=== PATIENT | female | born 1980 | race Caucasian/White ===

== ENCOUNTER 2017-08-21 07:35 | Emergency (ER) | payer MEDICARE ==
[~2017-08-21] VITALS: Ht 170.2 cm; Wt 68.0 kg
[~2017-08-21 07:35] MED LIST: ALPR0.5T96 PO; LORA10TA64 PO
[2017-08-21 07:50] VITALS: BP_SYST 116
--- NOTE | 2017-08-21 08:22 | NUR ---
Pt placed in bed 7, report endorsed to Sabino COOPER
--- NOTE | 2017-08-21 08:25 | NUR ---
PT AMBULATED INTO ED AAO X4 C/O FEVER AND SOB X2 DAYS. PT STATES THAT IT HURTS 8/10 TO TAKE A DEEP BREATH. PT SPEAKING IN FULL SENTENCES, BREATHING EVEN AND UNLABORED. PT C/O V/D X3 SINCE LAST NIGHT. PT HAS BEEN TAKING TYLENOL COLD AND FLU Q4HRS TO "KEEP MY FEVER DOWN." VSS MUKUL. NO OTHER COMPLAINTS/INJURIES PER PT/NOTED.
--- NOTE | 2017-08-21 08:44 | NUR ---
ER Dr. SCHAEFER at bedside examining patient.
[2017-08-21] MEDS ORDERED: ALBUTEROL SULFATE 0.083% 2.5 MG/3 ML VIAL.NEB IH ONE ×2 (09:00→10:30)
[2017-08-21] MEDS ORDERED: IPRATROPIUM BROM 0.5 MG/2.5 ML VIAL.NEB (ATROVENT) IH ONE ×2 (09:00→10:30)
--- NOTE | 2017-08-21 09:10 | NUR ---
RESPIRATORY AT BEDSIDE ADMINISTERING BREATHING TX.
[2017-08-21] MEDS ORDERED: PREDNISONE 20 MG TABLET PO ONE (09:15)
--- NOTE | 2017-08-21 09:32 | NUR ---
MEDICATION ADMINISTERED. PT NORBERTO WELL. NO ADVERSE REACTIONS NOTED.
[2017-08-21] MEDS ORDERED: NACL 0.9% 1,000 ML IV ONE (09:45)
--- NOTE | 2017-08-21 09:51 | NUR ---
RADIOLOGY AT BEDSIDE
[2017-08-21 10:05] LABS: BASOPHILS % (AUTO) 0.2 % (0.0-2.0); EOSINOPHILS # (AUTO) 0.1 K/uL (0.0-0.4); HEMATOCRIT 37.9 % (36-48); HEMOGLOBIN 12.7 g/dL (12.0-16.0); MEAN CORPUSCULAR HEMOGLOBIN 30 pg (27-31); MEAN CORPUSCULAR HGB CONC 34 % (32-36); MEAN CORPUSCULAR VOLUME 90 fL (79.0-98.0); MONOCYTES # (AUTO) 0.2 K/uL (0.0-1.0); MONOCYTES % (AUTO) 3.8 % (1.7-9.3); NEUTROPHILS # (AUTO) 4.8 K/uL (1.8-7.7); PLATELET COUNT (AUTO) 186 K/uL (130-430); RED BLOOD CELL COUNT(AUTO) 4.23 MIL/uL (4.2-6.2); RED CELL DISTRIBUTION WIDTH 12.4 % (9.0-15.0); WHITE BLOOD COUNT (AUTO) 6.1 K/uL (4.8-10.8)
--- NOTE | 2017-08-21 10:05 | NUR ---
PT VOMITED YELLOW EMESIS X1. NS BOLUS ADMINISTERED.
--- NOTE | 2017-08-21 10:15 | NUR ---
PT TAKEN TO RADIOLOGY VIA WHEELCHAIR IN STABLE CONDITION
--- NOTE | 2017-08-21 10:24 | NUR ---
PT RETURNED FROM RADIOLOGY VIA WHEELCHAIR IN STABLE CONDITION.
--- NOTE | 2017-08-21 10:38 | NUR ---
RESPIRATORY AT BEDSIDE ADMINISTERING BREATHING TX
--- NOTE | 2017-08-21 10:52 | NUR ---
ER MD SCHAEFER ORDERED ROCEPHIN ADMINISTRATION; MD SCHAEFER DOES NOT WANT BLOOD CULTURES DONE
[2017-08-21] MEDS ORDERED: cefTRIAXone 2 GM VIAL ONE (11:02)
--- NOTE | 2017-08-21 11:08 | NUR ---
Medication administered. Pt carol well. No adverse reactions noted.
--- NOTE | 2017-08-21 11:33 | NUR ---
Patient given written and verbal discharge instructions and verbalizes understanding. ER MD SCHAEFER discussed with patient the results and treatment provided. Patient in stable condition. ID arm band removed. IV catheter removed intact and dressing applied, no active bleeding. Rx of ZITHROMAX, TYLENOL WITH CODEINE given. Patient educated on pain management and to follow up with PMD. Pain Scale 1. Opportunity for questions provided and answered.
[2017-08-21 11:46] VITALS: BP_SYST 115
== END 2017-08-21 11:46 | disposition home or self-care (01) ==
LOC: SED 07:35
DX: J20.9 Acute bronchitis, unspecified (principal)
CPT/HCPCS: 36415; 71010; 71020; 81025; 85025; 86710; 94640; 96361; 96365; 99285; J0696; J7030; J7512

== ENCOUNTER 2017-08-22 15:13 | Emergency (ER) | payer MEDICARE ==
[~2017-08-22] VITALS: Ht 170.2 cm; Wt 65.8 kg
[2017-08-22 15:34] VITALS: BP_SYST 118
--- NOTE | 2017-08-22 16:02 | NUR ---
Patient to ER bed 5 to gown for evaluation. Side rails up. Report given to Joseph COOPER.
--- NOTE | 2017-08-22 16:03 | NUR ---
ER at bedside examining patient.
--- NOTE | 2017-08-22 16:05 | NUR ---
Patient to ER via triage with c/o fever and cough which are not resolving. Patient was seen in ER yesterday for same complaint and diagnosed with pneumonia, given antibiotics yesterday and RX. Patient reports that symptoms began on 08/16/17, patient able to ambulate to room with slow, steady gait with no increase in pain or sob upon exertion. Patient has been seen and evaluated by Dr Carolina, will continue to observe and assess.
[2017-08-22 16:06] LABS: BASOPHILS % (AUTO) 0.7 % (0.0-2.0); EOSINOPHILS # (AUTO) 0.2 K/uL (0.0-0.4); EOSINOPHILS % (AUTO) 3.9 % (0.0-4.0); HEMATOCRIT 35.8 % (36-48); HEMOGLOBIN 11.9 g/dL (12.0-16.0); LYMPHOCYTES # (AUTO) 1.2 K/uL (1.0-5.5); LYMPHOCYTES % (AUTO) 21.6 % (20.5-51.5); MEAN CORPUSCULAR HEMOGLOBIN 30 pg (27-31); MEAN CORPUSCULAR HGB CONC 33 % (32-36); MEAN CORPUSCULAR VOLUME 90 fL (79.0-98.0); MONOCYTES # (AUTO) 0.4 K/uL (0.0-1.0); MONOCYTES % (AUTO) 7.3 % (1.7-9.3); NEUTROPHILS # (AUTO) 3.7 K/uL (1.8-7.7); NEUTROPHILS % (AUTO) 66.5 % (40.0-70.0); PLATELET COUNT (AUTO) 236 K/uL (130-430); RED BLOOD CELL COUNT(AUTO) 3.96 MIL/uL (4.2-6.2); RED CELL DISTRIBUTION WIDTH 12.8 % (9.0-15.0); WHITE BLOOD COUNT (AUTO) 5.5 K/uL (4.8-10.8)
[2017-08-22] MEDS ORDERED: MAGNESIUM SULFATE 1 GM in NS 50 ML IV ONE (16:15)
[2017-08-22] MEDS ORDERED: ALBUTEROL SULFATE 0.083% 2.5 MG/3 ML VIAL.NEB IH ONE (16:15)
[2017-08-22] MEDS ORDERED: IPRATROPIUM BROM 0.5 MG/2.5 ML VIAL.NEB (ATROVENT) IH ONE (16:15)
--- NOTE | 2017-08-22 16:20 | NUR ---
RT at bedside for breathing treatment.
[2017-08-22 16:22] LABS: CALCIUM 8.3 mg/dL (8.4-11.0); CREATININE 0.8 mg/dL (0.55-1.30); POTASSIUM 3.9 mmol/L (3.5-5.1)
--- NOTE | 2017-08-22 16:25 | NUR ---
Report given to Wilmar COOPER for continued care.
--- NOTE | 2017-08-22 16:25 | NUR ---
rcv report from KENNETH Ruiz; pt sitting up in bed rcv HHN; comfortable and in no signs of distress; will continue to monitor
[2017-08-22 16:29] LABS: ALBUMIN 3.2 g/dL (3.4-4.8); TOTAL BILIRUBIN 0.3 mg/dL (0.0-1.0)
[2017-08-22] MEDS ORDERED: MAGNESIUM SULFATE 1 GM/2 ML VIAL ONE (16:52)
--- NOTE | 2017-08-22 17:05 | NUR ---
20g PIV LFA; pt tolerated; reports having nausea 3/10; will make MD aware and continue to monitor
[2017-08-22] MEDS ORDERED: NS 250 ML IV ONE (17:30)
--- NOTE | 2017-08-22 17:40 | NUR ---
as per MD, cancel send urine sample to lab
[2017-08-22 18:00] VITALS: BP_SYST 137
--- NOTE | 2017-08-22 18:00 | NUR ---
Patient given written and verbal discharge instructions and verbalizes understanding. ER MD discussed with patient the results and treatment provided. Patient in stable condition. ID arm band removed. IV catheter removed intact and dressing applied, no active bleeding. Rx of Albuterol given. Patient educated on pain management and to follow up with PMD in 2-3days. Pain Scale 0/10; pt and MD agreeable to discharge home. Opportunity for questions provided and answered.
== END 2017-08-22 18:00 | disposition home or self-care (01) ==
LOC: SED 15:13
DX: J40 Bronchitis, not specified as acute or chronic (principal); E86.0 Dehydration
CPT/HCPCS: 36415; 80053; 85025; 94640; 96365; 99284; J3475

== ENCOUNTER 2018-09-04 19:19 | Emergency (ER) | payer MEDICARE ==
[~2018-09-04] VITALS: Ht 170.2 cm; Wt 68.0 kg
[~2018-09-04 19:19] MED LIST changes: +ALPR0.5T PO; -ALPR0.5T96 PO
[2018-09-04 19:52] VITALS: BP_SYST 138
[2018-09-04] MEDS ORDERED: NACL 0.9% 1,000 ML IV ONE (20:20)
[2018-09-04] MEDS ORDERED: ONDANSETRON HCL 4 MG/2 ML VIAL IVP ONE (20:30)
[2018-09-04] MEDS ORDERED: LORazepam 2 MG/ML VIAL (FOR ER USE) IVP ONE ×2 (20:30→23:15)
[2018-09-04 21:05] LABS: BASOPHILS # (AUTO) 0.1 K/uL (0.0-0.2); BASOPHILS % (AUTO) 0.9 % (0.0-2.0); EOSINOPHILS # (AUTO) 0.2 K/uL (0.0-0.4); EOSINOPHILS % (AUTO) 3.2 % (0.0-4.0); HEMATOCRIT 38.7 % (36-48); HEMOGLOBIN 12.9 g/dL (12.0-16.0); LYMPHOCYTES # (AUTO) 2.9 K/uL (1.0-5.5); LYMPHOCYTES % (AUTO) 45.4 % (20.5-51.5); MEAN CORPUSCULAR HEMOGLOBIN 30 pg (27-31); MEAN CORPUSCULAR HGB CONC 33 % (32-36); MEAN CORPUSCULAR VOLUME 91 fL (79.0-98.0); MONOCYTES # (AUTO) 0.5 K/uL (0.0-1.0); MONOCYTES % (AUTO) 7.1 % (1.7-9.3); NEUTROPHILS # (AUTO) 2.8 K/uL (1.8-7.7); NEUTROPHILS % (AUTO) 43.4 % (40.0-70.0); PLATELET COUNT (AUTO) 297 K/uL (130-430); RED BLOOD CELL COUNT(AUTO) 4.28 MIL/uL (4.2-6.2); RED CELL DISTRIBUTION WIDTH 12.4 % (9.0-15.0); WHITE BLOOD COUNT (AUTO) 6.5 K/uL (4.8-10.8)
[2018-09-04 21:33] LABS: ANION GAP 10 (5-15); CALCIUM 8.2 mg/dL (8.4-11.0); CHLORIDE 104 mmol/L (98-107); GLUCOSE 88 mg/dL (70-99); POTASSIUM 3.5 mmol/L (3.5-5.1); SODIUM SERUM 140 mmol/L (136-145); UREA NITROGEN, BLOOD 14 mg/dL (8-21)
[2018-09-04 21:37] LABS: BILIRUBIN,URINE NEGATIVE (NEGATIVE); BLOOD, URINE NEGATIVE (NEGATIVE); CLARITY/URINE CLEAR (CLEAR); GLUCOSE,URINE NEGATIVE (NEGATIVE); KETONES,URINE NEGATIVE (NEGATIVE); LEUKOCYTE ESTERASE ,URINE NEGATIVE (NEGATIVE); NITRITE, URINE NEGATIVE (NEGATIVE); PROTEIN URINE NEGATIVE (NEGATIVE); UROBILINOGEN,URINE 0.2 (0.2-1.0)
[2018-09-04 21:39] LABS: ALANINE AMINOTRANSFERASE 21 U/L (12-78); ALBUMIN 3.7 g/dL (3.4-4.8); ALCOHOL, BLOOD 161 mg/dL (<10); ASPARTATE AMINOTRANSFERASE 19 U/L (10-37); LIPASE 143 U/L (73-393); TOTAL BILIRUBIN 0.2 mg/dL (0.0-1.0)
[2018-09-04 21:40] LABS: ACETAMINOPHEN < 1 ug/mL (1-30); GFR AFRICAN AMERICAN 122 mL/min (>90)
[2018-09-04 22:09] LABS: COLOR,URINE STRAW (YELLOW)
[2018-09-04 22:19] LABS: BARBITURATE, URINE NEGATIVE (NEG <=200); BENZODIAZEPINE, URINE POSITIVE (NEG <=150); CANNABINOID, URINE NEGATIVE (NEG <=50); COCAINE, URINE NEGATIVE (NEG <=150); METHAMPHETAMINES SCREEN,URINE NEGATIVE (NEG <=500); OPIATE, URINE NEGATIVE (NEG <=100); PHENCYCLIDINE SCREEN,URINE NEGATIVE (NEG <=25); UR TRICYCLIC ANTIDEPRESSANTS NEGATIVE (NEG <=300); URINE AMPHETAMINE NEGATIVE (NEG <=500); URINE METHADONE NEGATIVE (NEG <=200); URINE OXYCODONE SCREEN NEGATIVE (NEG <=100); URINE PROPOXYPHENE SCREEN NEGATIVE (NEG <=300)
[2018-09-04 23:15] VITALS: BP_SYST 135
== END 2018-09-04 23:15 | disposition home or self-care (01) ==
LOC: SED 19:19
DX: F41.9 Anxiety disorder, unspecified (principal); F10.129 Alcohol abuse with intoxication, unspecified; R11.10 Vomiting, unspecified
CPT/HCPCS: 36415; 80053; 80307; 81003; 81025; 83690; 85025; 96361; 96374; 96375; 96376; 99283; G0480; G0481; G0482; J2060; J2405; J7030